=== PATIENT | female | born 1995 | race Caucasian/White ===

== ENCOUNTER 2016-03-06 21:26 | Emergency (ER) | payer MEDICAID | END 2016-03-06 21:49 | disposition home or self-care (01) | LOC: D.ER 21:26 | DX: T23.101A Burn of first degree of right hand, unspecified site, initial encounter (principal); X10.2XXA Contact with fats and cooking oils, initial encounter; Y93.89 Activity, other specified; Y92.89 Other specified places as the place of occurrence of the external cause; F17.200 Nicotine dependence, unspecified, uncomplicated ==

== ENCOUNTER 2016-09-12 02:48 | Emergency (ER) | payer MEDICAID ==
[2016-09-12 03:19] LABS: APPEARANCE CLEAR (CLEAR); COLOR YELLOW (YELLOW); GLUCOSE NEGATIVE (NEGATIVE); HCG URINE NEGATIVE (NEGATIVE); KETONE NEGATIVE (NEGATIVE); LEUKOCYTE ESTERASE NEGATIVE (NEGATIVE); NITRITE NEGATIVE (NEGATIVE); PROTEIN NEGATIVE (NEGATIVE); UROBILINOGEN NORMAL (NORMAL)
[2016-09-12 03:20] LABS: BILIRUBIN NEGATIVE (NEGATIVE)
[2016-09-12 03:27] LABS: UDS - AMPHET NEGATIVE QUAL (NEGATIVE); UDS - BARB NEGATIVE QUAL (NEGATIVE); UDS - BENZO NEGATIVE QUAL (NEGATIVE); UDS - COCAINE NEGATIVE QUAL (NEGATIVE); UDS - METH NEGATIVE QUAL (NEGATIVE); UDS - OPIATE NEGATIVE QUAL (NEGATIVE); UDS - PCP NEGATIVE QUAL (NEGATIVE); UDS - THC NEGATIVE QUAL (NEGATIVE)
[2016-09-12 03:42] LABS: BASOPHILS 0.4 % (0-2); EOSINOPHILS 2.2 % (0-7); HEMATOCRIT 38.7 % (36.0-48.0); HEMOGLOBIN 13.1 g/dL (12-16); IMMATURE GRANULOCYTES 0.2 % (0-5); LYMPHOCYTES 30.1 % (15-50); MCHC 33.9 g/dL (31.0-37.0); MCV 85.8 fL (80.0-100.0); MEAN PLATELET VOLUME 9.4 fL (7.4-10.4); MONOCYTES 5.9 % (2-11); NEUTROPHILS 61.2 % (40-80); PLATELET COUNT 271 10x3/uL (130-400); RBC 4.51 10x6/uL (4.00-5.40); WBC 8.1 10x3/uL (4.8-10.8)
[2016-09-12 03:57] LABS: HCG SERUM NEGATIVE (NEGATIVE)
[2016-09-12 04:02] LABS: ALBUMIN 3.5 g/dL (3.4-5.0); ALKALINE PHOSPHATASE 102 U/L (46-116); ALT (SGPT) 50 U/L (10-68); BILIRUBIN - TOTAL 0.28 mg/dL (0.2-1.3); CALC OSMOLALITY 284 mosm/kg (275-300); CHLORIDE - SERUM 107 mmol/L (98-107); CREATININE - SERUM 0.8 mg/dL (0.6-1.3); GLUCOSE 92 mg/dL (74-106); POTASSIUM - SERUM 3.6 mmol/L (3.5-5.1); PROTEIN - SERUM 7.3 g/dL (6.4-8.2); SODIUM 144 mmol/L (136-145); UREA NITROGEN 7 mg/dL (7-18); eGFR NON AFRICAN AMERICAN > 90 mL/min (90-120)
== END 2016-09-12 08:07 | disposition home or self-care (01) ==
LOC: D.ER 02:48
PROVIDERS: Emergency Medicine
DX: T42.8X2A Poisoning by antiparkinsonism drugs and other central muscle-tone depressants, intentional self-harm, initial encounter (principal); F17.200 Nicotine dependence, unspecified, uncomplicated

== ENCOUNTER 2018-03-04 21:09 | Emergency (ER) | payer SELFPAY ==
[~2018-03-04] VITALS: Ht 165.1 cm; Wt 95.3 kg
[2018-03-04 21:24] VITALS: BP 144/103; Ht 165.1 cm; Wt 95.3 kg
[2018-03-04] MEDS ORDERED: PREDNISONE20 MG PO (22:44)
[2018-03-04] MEDS ORDERED: TAMIFLU75 MG PO (22:44)
[2018-03-04] MEDS ORDERED: VENTOLIN HFA18 GM INH (22:44)
[2018-03-04] MEDS ORDERED: DOXYCYCLINE HY100 M2 PO (22:44)
== END 2018-03-04 23:19 | disposition home or self-care (01) ==
LOC: D.ER 21:09
DX: R50.9 Fever, unspecified (principal); R05 Cough; J01.90 Acute sinusitis, unspecified; M79.18 Myalgia, other site; R09.89 Other specified symptoms and signs involving the circulatory and respiratory systems

== ENCOUNTER 2018-05-12 10:30 | Emergency (ER) | payer MEDICAID ==
[~2018-05-12] VITALS: Ht 165.1 cm; Wt 90.9 kg
[~2018-05-12 10:30] MED LIST: DOXYCYCLINE HY100 M2 PO; PREDNISONE20 MG PO; TAMIFLU75 MG PO; VENTOLIN HFA18 GM INH
[2018-05-12 11:14] VITALS: BP 135/96; Ht 165.1 cm; Wt 90.9 kg
[2018-05-12 12:58] LABS: BASOPHILS 0.8 % (0-2); HEMATOCRIT 42.6 % (36.0-48.0); HEMOGLOBIN 14.1 g/dL (12-16); IMMATURE GRANULOCYTES 0.3 % (0-5); LYMPHOCYTES 41.7 % (15-50); MCH 28.1 pg (26.0-34.0); MCHC 33.1 g/dL (31.0-37.0); MCV 84.9 fL (80.0-100.0); MEAN PLATELET VOLUME 9.5 fL (7.4-10.4); MONOCYTES 9.3 % (2-11); NEUTROPHILS 39.9 % (40-80); PLATELET COUNT 221 10x3/uL (130-400); RBC 5.02 10x6/uL (4.00-5.40); RDW 13.3 % (11.5-14.5)
[2018-05-12 13:17] LABS: ALBUMIN 3.5 g/dL (3.4-5.0); ALKALINE PHOSPHATASE 107 U/L (46-116); ALT (SGPT) 63 U/L (10-68); BILIRUBIN - TOTAL 0.38 mg/dL (0.2-1.3); CALC OSMOLALITY 273 mosm/kg (275-300); CALCIUM 8.5 mg/dL (8.5-10.1); CARBON DIOXIDE 24.9 mmol/L (21.0-32.0); CHLORIDE - SERUM 103 mmol/L (98-107); CREATININE - SERUM 0.9 mg/dL (0.6-1.3); GLUCOSE 86 mg/dL (74-106); POTASSIUM - SERUM 4.2 mmol/L (3.5-5.1); PROTEIN - SERUM 7.7 g/dL (6.4-8.2); SODIUM 138 mmol/L (136-145); UREA NITROGEN 9 mg/dL (7-18); eGFR NON AFRICAN AMERICAN 84 mL/min (90-120)
[2018-05-12 13:21] LABS: AMYLASE - SERUM 45 U/L (25-115); LIPASE 112 U/L (73-393); TROPONIN-I < 0.017 ng/mL (0.000-0.060)
[2018-05-12 14:12] LABS: HCG URINE NEGATIVE (NEGATIVE)
[2018-05-12 14:18] LABS: APPEARANCE HAZY (CLEAR); BACTERIA MODERATE /hpf (NONE SEEN); BILIRUBIN NEGATIVE (NEGATIVE); COLOR YELLOW (YELLOW); EPITHELIAL CELLS 0-5 /hpf (0-5); GLUCOSE NEGATIVE (NEGATIVE); KETONE NEGATIVE (NEGATIVE); MUCUS <1+ /lpf (NONE SEEN); NITRITE NEGATIVE (NEGATIVE); PROTEIN NEGATIVE (NEGATIVE); UROBILINOGEN NORMAL (NORMAL); WHITE CELLS - URINE 0-5 /hpf (0-5)
[2018-05-12] MEDS ORDERED: KEFLEX500 MG PO (14:51)
[2018-05-12] MEDS ORDERED: MACROBID100 MG PO (14:51)
== END 2018-05-12 15:08 | disposition home or self-care (01) ==
LOC: D.ER 10:30
PROVIDERS: Family Medicine
DX: N39.0 Urinary tract infection, site not specified (principal); R11.2 Nausea with vomiting, unspecified

== ENCOUNTER 2018-08-10 14:28 | Emergency (ER) | payer MEDICAID ==
[~2018-08-10] VITALS: Ht 165.1 cm; Wt 96.8 kg
[~2018-08-10 14:28] MED LIST changes: +KEFLEX500 MG PO; +MACROBID100 MG PO
[2018-08-10 15:00] VITALS: Ht 165.1 cm; Wt 96.8 kg
[2018-08-10] MEDS ORDERED: VOLTAREN75 MG PO (16:04)
[2018-08-10 16:49] VITALS: BP 118/86
== END 2018-08-10 16:49 | disposition home or self-care (01) ==
LOC: D.ER 14:28
DX: S82.62XA Displaced fracture of lateral malleolus of left fibula, initial encounter for closed fracture (principal); X50.1XXA Overexertion from prolonged static or awkward postures, initial encounter; Y93.89 Activity, other specified; Y92.89 Other specified places as the place of occurrence of the external cause

== ENCOUNTER 2019-05-19 15:33 | Emergency (ER) | payer SELFPAY ==
[~2019-05-19] VITALS: Ht 165.1 cm; Wt 90.9 kg
[~2019-05-19 15:33] MED LIST changes: +VOLTAREN75 MG PO
[2019-05-19 15:39] VITALS: Ht 165.1 cm; Wt 90.9 kg
[2019-05-19] MEDS ORDERED: CLARITIN 10 MG10 MG PO (17:14)
[2019-05-19 17:46] VITALS: BP 124/93
== END 2019-05-19 17:46 | disposition home or self-care (01) ==
LOC: D.ER 15:33
DX: J30.2 Other seasonal allergic rhinitis (principal); E11.9 Type 2 diabetes mellitus without complications

== ENCOUNTER 2020-07-13 20:37 | Emergency (ER) | payer OTHER ==
[~2020-07-13] VITALS: Ht 165.1 cm; Wt 99.8 kg
[~2020-07-13 20:37] MED LIST changes: +CLARITIN 10 MG10 MG PO
[2020-07-13 20:39] VITALS: BP 153/113; Ht 165.1 cm; Wt 99.8 kg
[2020-07-13 21:22] LABS: BACTERIA FEW HPF (NONE SEEN); BILIRUBIN NEGATIVE (NEGATIVE); HCG URINE NEGATIVE (NEGATIVE); KETONE NEGATIVE (NEGATIVE); NITRITE NEGATIVE (NEGATIVE); UROBILINOGEN NORMAL mg/dL (< 2); WHITE CELLS - URINE RARE HPF (0-4)
[2020-07-13] MEDS ORDERED: CYCLOBENZAPRINE10 MG PO (21:48)
== END 2020-07-13 22:40 | disposition home or self-care (01) ==
LOC: D.ER 20:37
PROVIDERS: Emergency Medicine
DX: M79.602 Pain in left arm (principal); M54.5 Low back pain; M25.572 Pain in left ankle and joints of left foot; T14.8XXA Other injury of unspecified body region, initial encounter; V89.2XXA Person injured in unspecified motor-vehicle accident, traffic, initial encounter; Y93.9 Activity, unspecified; Y92.9 Unspecified place or not applicable